=== PATIENT | female | born 2000 | race African-American/Black ===

== ENCOUNTER 2020-01-27 11:15 | Emergency (ER) | payer SELFPAY ==
[2020-01-27 11:25] VITALS: BP 111/67; PULSE 71; RESP 24; TEMP 37.3; O2SAT 100
--- NOTE | 2020-01-27 11:28 | ED.GENADULT ---
HPI - General Adult General Chief complaint: Unspecified Stated complaint: Fever yesterday/shortness of breath/headache Time Seen by Provider: 01/27/20 11:28 Source: patient Mode of arrival: ambulatory Limitations: no limitations History of Present Illness HPI narrative: 19-year-old female patient presents to the [facility] with complaints of cold symptoms for the past 5 days. Patient states she had a fever as high as 102 yesterday and did take some Tylenol for it and states she has not had a fever since then. Patient also complaining of a headache for the past 5 days and some intermittent shortness of breath. Patient states that she does smoke marijuana and states that since her symptoms started she is quit smoking the marijuana. Patient states that she does work at [employer] and has been coming into contact with a lot of people. Patient denies any chest pain. Patient denies any abdominal pain, nausea, vomiting or diarrhea. Patient states she is only been taking Tylenol for her symptoms and denies any other medications. Denies or breast-feeding at this time.Patient states she is concerned about coronavirus because she works in the public and requesting to be tested. Patient states she does not have a primary care provider. Related Data Home Medications Medication Instructions Recorded Confirmed No Home Medications 01/27/20 01/27/20 Allergies Allergy/AdvReac Type Severity Reaction Status Date / Time latex Allergy Rash Verified 01/27/20 11:44 red dye Allergy Swelling Verified 01/27/20 11:44 of Lip/Tongue/Throat Review of Systems Review of Systems: Narrative: CONSTITUTIONAL: positive subjective fever, dneies chills, or sweats. EYES: Denies visual changes, redness, or discharge. ENT: Denies rhinorrhea, congestion, sore throat, or otalgia. CARDIOVASCULAR: Denies chest pain, palpitations, or edema. RESPIRATORY: Denies cough, positive Intermittent dyspnea. GASTROINTESTINAL: Denies abdominal pain, nausea, vomiting, or diarrhea. GENITOURINARY: Denies dysuria or hematuria. SKIN: Denies rash or itching. MUSCULOSKELETAL: Denies back pain, joint pain, or myalgia. NEUROLOGIC: Positive headache,deneis numbness, or weakness. PSYCHIATRIC: Denies anxiety or depression. PMFSH Comments At the time of my signature I agree with nursing past medical history, surgical, social, and family history. There is no relevant family history pertinent to the presenting complaint. Exam Narrative: Exam Narrative: GENERAL: Well-appearing, well-nourished, and in no acute distress. HEAD: Normocephalic, atraumatic.No tenderness noted to frontal maxillary sinuses on palpation EYES: PERRLA and EOMI. ENT: Nares With erythema and edema noted bilaterally, no rhinorrhea or epistaxis. Mucous membranes moist.Posterior pharynx with 2+ tonsil enlargement and erythema noted. No exudates or lesions present.Bilateral TMs are clear no erythema there is some earwax noted to the canal. NECK: Supple. No lymphadenopathy CHEST: Clear to auscultation. No respiratory distress. HEART: Regular rate and rhythm. No murmur heard. Normal peripheral pulses. ABDOMEN: Soft, nontender, nondistended, normal active bowel sounds. EXTREMITIES: Normal range of motion. No edema. SKIN: Warm, dry, no rash. NEURO: No focal deficits. Alert and oriented x3. Course Reevaluation(s) Reevaluation #1: Reevaluated patient. Discussed with her that her strep and influenza test were both negative at this time. Discussed with patient since she does work in the public and is having symptoms of subjective fever along with a headache we will go ahead and send her for coronavirus testing. Discussed with them that I did fax a request form for this order to [facility] and they should be calling her within the next 24 hours to have this scheduled. Discussed with patient that meanwhile she needs to be isolating herself at home away from family and continue taking Tylenol for he
== END 2020-01-27 12:30 | disposition home or self-care (01) ==
PROVIDERS: Emergency Provider Nurse Practitioner Family
DX: Z20.828 Contact with and (suspected) exposure to other viral communicable diseases (principal); R06.02 Shortness of breath; R50.9 Fever, unspecified; R51 Headache; J30.2 Other seasonal allergic rhinitis
CPT/HCPCS: 87081; 87804; 87880; 99213; G0463

== ENCOUNTER 2020-01-28 09:30 | Outpatient (NON) | payer OTHER, SELFPAY ==
[2020-01-29 11:48] LABS: SARS-CoV-2 RNA PCR Negative
== END 2020-01-28 09:31 ==
PROVIDERS: Visit Provider Nurse Practitioner Family
DX: R09.89 Other specified symptoms and signs involving the circulatory and respiratory systems (principal); Z20.828 Contact with and (suspected) exposure to other viral communicable diseases
CPT/HCPCS: 87635; C9803; U0003

== ENCOUNTER 2022-05-17 09:51 | Emergency (ER) | payer OTHER, SELFPAY ==
[2022-05-17] VITALS (14 sets, daily range): BP systolic 113–133; BP diastolic 55–96; PULSE 58–85; RESP 10–18; TEMP 36.4; O2SAT 100
--- NOTE | ~2022-05-17 | XR_ITS ---
EXAMINATION: XR chest 1V portable DATE: 05/17/2022 12:14 INDICATION: Syncope. TECHNIQUE: A single frontal view of the chest was obtained. COMPARISON: None. FINDINGS: The chest demonstrates clear lungs without pneumonia, pleural effusion, or pneumothorax. Th e heart size is normal. IMPRESSION: 1. No acute cardiopulmonary disease. Reviewed, dictated and finalized at location A.
--- NOTE | 2022-05-17 10:06 | ECG_ITS ---
Measurements Intervals Williams Rate: 66 P: 59 HI: 111 QRS: 75 QRSD: 88 T: 65 QT: 383 QTc: 403 Interpretive Statements SINUS RHYTHM WITH SHORT HI INTERVAL BASELINE ARTIFACT BORDERLINE ECG NO PREVIOUS ECG AVAILABLE FOR COMPARISON Electronically Signed On 05-17-2022 12:52:39 CDT by Wilbur Ashraf M.D.
[2022-05-17 10:29] LABS: Basophils Absolute Auto 0.1 K/mm3 (0.0-0.1); Basophils Percent Auto 1.2 % (0.2-1.2); Eosinophils Absolute Auto 0.1 K/mm3 (0-0.3); Hematocrit 37.2 % (37.0-47.0); Hemoglobin 11.1 g/dL (12.0-15.0); Immature Granulocyte Absolute 0.01 K/mm3 (0.00-0.031); Immature Granulocyte Percent A 0.2 % (0-0.5); Lymphocytes Absolute Auto 2.49 K/mm3 (0.9-3.2); Mean Corpuscular HGB Conc 29.8 g/dl (32-36); Mean Corpuscular Hemoglobin 26.9 pg (26-34); Mean Corpuscular Volume 90.3 fl (80-100); Mean Platelet Volume 9.9 fl (7.4-10.4); Monocytes Absolute Auto 0.6 K/mm3 (0.1-0.6); Monocytes Percent Auto 11.6 % (2.6-8.5); Neutrophils Absolute Auto 1.8 K/mm3 (1.3-6.7); Platelet Count Result 235 k/mm3 (150-375); Red Blood Count 4.12 M/mm3 (4.2-5.4); Red Cell Distribution Width 13.3 % (11.5-14.5); White Blood Count 5.1 K/mm3 (4.5-10.0)
[2022-05-17 10:39] LABS: Alanine Aminotransferase 9 U/L (6-35); Albumin Level 4.6 g/dL (3.5-5.1); Alkaline Phosphatase 57 U/L (38-126); Anion Gap 9 mmol/L (8-16); Aspartate Amino Transferase 23 U/L (14-36); Bilirubin,Total 0.5 mg/dL (0.2-1.3); Blood Urea Nitrogen 13 mg/dL (7-17); Calcium 9.1 mg/dL (8.4-10.2); Carbon Dioxide 26 mmol/L (22-30); Chloride 105 mmol/L (98-107); Estimated CRCL calculation 90 ml/min; Estimated Glomerular Filt Rate > 60; Glucose 93 mg/dL (65-110); Sodium 140 mmol/L (137-145)
[2022-05-17 11:18] LABS: Troponin I < 0.012 ng/mL (0.000-0.034)
[2022-05-17 11:22] LABS: Beta HCG Quantitative < 2.39 mIU/ML
[2022-05-17 11:26] LABS: Appearance Urine Clear (Clear); Bilirubin Urine 1+ (Negative); Blood Urine Negative (Negative); Color Urine Yellow (Yellow); Glucose Urine UA Negative (Negative); Ketones Urine Trace mg/dL (Negative); Leukocyte Esterase Ur Negative LEU/UL (Negative); Nitrate Urine Negative (Negative); Protein Urine 1+ mg/dL (Negative); Specific Grav Ur >= 1.030 (1.001-1.035); Urobilinogen Urine 0.2 mg/dL (<2.0)
[2022-05-17 11:36] LABS: Mucus Urine Heavy /lpf; RBC Urine 0-2 /hpf (0-2); Squamous Epithelial Cell Urine Few /hpf (Few); WBC Urine 0-3 /hpf
[2022-05-17 11:38] LABS: Add Urine Microscopic? YES
[2022-05-17] MEDS: SODIUM CHLORIDE 0.9% IV 1,000 ML 999 ML IV CONT (11:46)
[2022-05-17] MEDS: FAMOTIDINE 20 MG/2 ML VIAL IV PUSH (11:46)
[2022-05-17] MEDS: ONDANSETRON INJ 4 MG/2 ML VIAL IV PUSH (11:46)
[2022-05-17 12:03] LABS: Lipase 76 U/L (23-300)
--- NOTE | 2022-05-17 13:19 | PC.NURSE ---
PT not found in room. PT not found in bathrooms. Charge Nurse made aware at 13:20.
--- NOTE | 2022-05-17 14:15 | ED.GENADULT ---
HPI - General Adult General Chief complaint: Syncope Stated complaint: syncope Time Seen by Provider: 05/17/22 10:42 Source: RN notes reviewed History of Present Illness HPI narrative: Patient presents emergency department from work for syncopal episode. Patient states that this morning she woke up and had feeling nauseous. She states that she is currently 6 weeks but has not seen [employer] SALES [employer]ULTANT but is followed by [facility] SALES CON[facility] at [facility] states she is post be seen in the next week but she has been having nausea and vomiting with her . States that she had not eaten anything this morning and had go to work at [employer]. She states that she been feeling mildly lightheaded if she had anything and that she was walking to the door she had a syncopal episode. She states she did fall to the ground but did not sustain any injuries. States that currently she has some mild nausea but she denies any vision changes chest pain shortness of breath abdominal pain diarrhea or any other symptoms she denies any vaginal bleeding. Related Data Home Medications Medication Instructions Recorded Confirmed No Home Medications 01/27/20 01/27/20 Allergies Allergy/AdvReac Type Severity Reaction Status Date / Time hydrocodone Allergy Rash Verified 05/17/22 10:43 latex Allergy Rash Verified 05/17/22 10:43 red dye Allergy Swelling Verified 05/17/22 10:43 of Lip/Tongue/Throat Review of Systems Review of Systems: Gen.: Denies fevers or chills Eyes: Denies eye pain or visual change ENT: Denies congestion Respiratory: Denies shortness of breath or cough CV: Denies chest pain or palpitations reports syncopal episode GI: Denies abdominal pain or diarrhea. Reports nausea vomiting denies burning, urgency, frequency or hematuria Musculoskeletal: Denies back pain or muscle pain Neuro: Denies headache numbness or tingling reports feeling lightheaded Skin: Denies rash Except as documented, all other systems reviewed and negative Exam Narrative: APPEARANCE: No acute distress, nontoxic, resting in bed HEENT: Normocephalic, atraumatic, OMM, EYES: PERRL, EOMI RESPIRATORY: No respiratory distress, clear to auscultation bilaterally with no rhonchi wheezing or rales CARDIOVASCULAR: RRR s murmur ABDOMINAL: Soft, nontender, nondistended MUSCULOSKELETAL: Moves all extremities. No clubbing, cyanosis or edema. NEURO: A and O ?3, following commands, speech normal, no facial droop no focal deficits SKIN:: Warm, dry. Normal Color PSYCHIATRIC: Normal affect/mood Course Course Emergency Course: Discussed with patient her negative beta-hCG blood test in the emergency department. The patient states she has had 2 home test that have been positive Patient eloped from emergency department prior to completion of work-up Vital Signs Vital signs: Vital Signs Temperature 97.6 F 05/17/22 10:07 Pulse Rate 75 05/17/22 10:07 Respiratory Rate 18 05/17/22 10:07 Blood Pressure 114/55 L 05/17/22 10:07 Pulse Oximetry 100 05/17/22 10:07 Oxygen Delivery Room Air 05/17/22 10:07 Temperature 97.6 F 05/17/22 10:07 Pulse Rate 84 05/17/22 12:46 Respiratory Rate 18 05/17/22 12:46 Blood Pressure 133/96 H 05/17/22 12:24 Pulse Oximetry 100 05/17/22 12:46 Oxygen Delivery Room Air 05/17/22 10:07 Medical Decision Making Vital Signs Vital Signs: Vital Signs Temperature 97.6 F 05/17/22 10:07 Pulse Rate 75 05/17/22 10:07 Respiratory Rate 18 05/17/22 10:07 Blood Pressure 114/55 L 05/17/22 10:07 Pulse Oximetry 100 05/17/22 10:07 Oxygen Delivery Room Air 05/17/22 10:07 Temperature 97.6 F 05/17/22 10:07 Pulse Rate 84 05/17/22 12:46 Respiratory Rate 18 05/17/22 12:46 Blood Pressure 133/96 H 05/17/22 12:24 Pulse Oximetry 100 05/17/22 12:46 Oxygen Delivery Room Air 05/17/22 10:07 Lab Data Result diagrams: 05/17/22 10:19 05/17/22 10:19
== END 2022-05-17 13:24 | disposition left against medical advice (07) ==
PROVIDERS: Emergency Provider Emergency Medicine
DX: R55 Syncope and collapse (principal); R11.2 Nausea with vomiting, unspecified
CPT/HCPCS: 36415; 71045; 80053; 81001; 83690; 84484; 84702; 85025; 93005; 96361; 96374; 96375; 99284; J2405; J7030